=== PATIENT | female | born 1985 | race Caucasian/White ===

== ENCOUNTER 2024-08-04 14:50 | Observation (INO) | payer OTHER, SELFPAY ==
[2024-08-04] VITALS (8 sets, daily range): BP systolic 99–125; BP diastolic 61–86; BMI 16.5
--- NOTE | 2024-08-04 12:13 | ED.GENMED ---
History of Present Illness
General
Chief Complaint: Seizure
Source: patient
Exam Limitations: none
Time Seen by Provider: 08/04/24 11:59
Nursing documentation reviewed up to this point in time: agreed with
History of Present Illness
History of Present Illness:
Patient presents to ED after 'period of unresponsiveness' noted by her , while she was sitting on the couch last night lasting 'minutes'. She was told by her , she appeared to be confused when she did respond. Her eyes were open and
breathing the whole time. Denies previous history of similar symptoms. Shortly after the episode, patient reports 2 episodes of vomiting. Denies headache. Denies dizziness. Denies loss of sensation or weakness. Denies difficulty ambulation.
Denies difficulty with speech. Of note, patient was started on Wellbutrin for the first time 3 weeks ago for depression. In addition, patient is on Adderall chronically for ADHD. Denies family history of seizure disorder. Denies urinary or bowel
incontinence. Denies tongue biting.
Past History
Past History
ED Past Medical History: None; Negative Asthma, HTN, Hypercholesterolemia or NIDDM
ED Past Surgical History: (X 2)
Social History
Tobacco: Non-smoker
Alcohol: Occasional
Personal:
Living: with family
Employment: Employed
Review of Systems
Review of Systems
Allergies reviewed?: Yes
All Other Systems: ROS reviewed and negative except as documented in HPI and ROS
Constitutional: Reports no symptoms
Cardiac: Reports no symptoms
ABD/GI: Reports no symptoms
: Reports no symptoms; Denies incontinence
Musculoskeletal: Reports no symptoms
Skin: Reports no symptoms
Neurological: Reports no symptoms; Denies dizzy, headache, weakness or numbness
Phy Exam
Physical Exam
Physical Exam:
Physical Exam
General: no apparent distress, not acutely ill. afebrile
Head: nc/at. eomi
Neck: supple. no meningeal signs.
Heart: s1/s2 regular rate and rhythm
Lungs: no acute respiratory distress. clear bilaterally
Abdomen: normal bowel sounds. not tender.
Neuro: alert and oriented x 3. no focal neurological deficits. normal speech
Skin: no rash
Psychiatric: well kept. interactive and cooperative
Extremities: no edema. no calf tenderness.
Course
Orders/Labs/Results
Orders:
Orders
08/04/24 Breakfast
Regular
At Your Request: Full Participation
Does patient need a safe tray?: No
08/04/24 11:36
ECG [Electrocardiogram (*1)] Urgent
Reason for Study: Other
Other Reason for Exam: seizure
08/04/24 11:37
EKG- Treatment ONCE
08/04/24 13:46
EEG Routine Routine
Reason for Exam: ? CPS
Neurology Consult:: DR. CHENG
MR Brain W/o & With Contrast Routine
Comment:
Reason For Exam: seizure
Recent pill cam endoscopy?: No
08/04/24 13:50
Test Result ONCE
08/04/24 13:53
Complete Blood Count/No Diff Urgent
Comprehensive Metabolic Panel Urgent
HCG, Serum Qualitative Screen Urgent
Magnesium Urgent
TSH Reflex To Free T4 Urgent
Comment: ADD ON
08/04/24 13:59
Add On- LAB Urgent
Tests Added?: TSH reflex free T4
08/04/24 14:35
Admit/Transfer Patient As Directed
Co-Sign Provider:
Level of Care: Observation services
Assign to:: Telemetry
Physician / Group: [email or web address]
Diagnosis: Likely new onset Sz
Reason for Telemetry: Other
Other Reason for Telemetry: Likely new onset Sz
Date to Stop Telemetry: 08/06/24
Time to Stop Telemetry: 11:00
08/04/24 14:37
Code Status As Directed
Resuscitation Status: Full Code
08/04/24 16:28
Acetaminophen [Tylenol] 650 mg PO Q4HPRN PRN
Bisacodyl [Dulcolax] 10 mg RECTAL [id number] PRN
Docusate W/Senna [Senokot-S] 1 tablet PO BIDPRN PRN
Polyethylene Glycol Powder [Miralax] 17 grams PO DAILYPRN PRN
08/04/24 16:28
Activity As Directed
Activity Level: With Assistance
Pneumatic Compression Sleeves As Directed
Type: Knee high
Vital Signs As Directed
Frequency: Per unit guidelines
DX Deep Vein Thrombosis Video Routine
08/05/24 06:00
Basic Metabolic Panel IN AM
Complete Blood Count/With Diff IN AM
08/06/24 11:00
DC Protocol for Telemetry ONCE
Abnormal Lab Results
08/04/24
13:53
WBC 4.4 L 10^3/uL
(4.8-10.8)
MCH 31.2 H pg
(27.0-31.0)
MPV 10.6 H fL
(7.4-10.4)
08/04/24 13:53
08/04/24 13:53
Vital Signs
Initial and Last Documented VS:
Initial Vital Signs
Temp Pulse Resp BP Pulse Ox
97.9 F 106 20 125/86 99
08/04/24 11:31 08/04/24 11:31 08/04/24 11:31 08/04/24 11:31 08/04/24 11:31
Last Documented Vital Signs
Temp Pulse Resp BP Pulse Ox
97.6 F 77 16 100/62 98
08/05/24 03:44 08/05/24 03:44 08/05/24 03:44 08/05/24 03:44 08/05/24 03:44
MDM/Problems Addressed
MDM/Problems Addressed:
Patient evaluated in ED by neurology, . Recommends further workup, including MRI brain w/wo contrast and EEG
*Critical Care Note
Total Time (30-74mins, 75-104mins- exclusive of procedures): Not Applicable
ED Attending Note
-
Portions of this chart may have been created with voice recognition software.� Occasional wrong word or��sound alike� substitutions may have occurred due to the inherent limitations of voice recognition software.
Discharge Plan
Departure
Patient Disposition: Admit
Date of Disposition: 08/04/24
Time of Disposition: 14:19
Presentation/result/management discussed w/ accepting MD/DO: Hospitalist
Discharge Problem:
Seizure
Interventions
Interventions:
*Risk Screen - Suicide Last Done: 08/04/24 16:31
*General Assessment Last Done: 08/04/24 11:31
*Neglect/Abuse Screening Last Done: 08/04/24 12:26
*ED- Fall Risk Assessment Last Done: 08/04/24 12:26
*ED COVID-19 Vaccine History Last Done: 08/04/24 16:31
*Nursing Disposition Last Done: 08/04/24 16:29
ED- Pulmonary Assessment Last Done: 08/04/24 12:31
ED- Neurological Assessment Last Done: 08/04/24 12:31
ED- Cardiac Assessment Last Done: 08/04/24 12:31
Discharge Date and Time
Discharge Date/Time: 08/04/24 16:32
--- NOTE | 2024-08-04 13:38 | CON.NEURO ---
Neuro Assessment/Plan
Assessment
First time seizure, probably right sided focus given left sided Damian's palsy.
With Wellbutrin having lowered the seizure threshold this would be a provoked seizure
Plan
admit obs
MRI brain with and w/o contrast
routine EEG
d/c Wellbutrin
ok to drive if studies are normal
Consultation
Order
Date of Consultation: 08/04/24
Requesting Provider: Aman Arvizu
Reason for Consult: seizure
Subjective/Objective
Subjective Data
Date of Service: August 04, 2024
38 year old right handed woman presents possible seizure. She remembers cleaning up after dinner last night, and then later in the evening her found her laying on couch unresponsive, then confused, and then gradually returned to normal. ~25
mins later vomited x2. no tongue bite
no head trauma/LOC, no STATISTICS INTERN infection, no fhx of seizures
started Wellbutrin 3 weeks ago
Objective Data
Vital Signs
Temp Pulse Resp BP Pulse Ox
36.6 C 96 19 125/86 100
08/04/24 11:31 08/04/24 12:32 08/04/24 12:32 08/04/24 11:31 08/04/24 12:32
Patient Allergies
No Known Allergies Allergy (Verified 08/04/24 11:31)
Physical Exam
-
AAOx3, speech clear, language intact
VFF, EOMI, face symmetric
subtle left sided weakness/pronator drift
mildly decreased sensation left UE/LE to pin, temp, and vibration
DTR 1+ symmetric
[2024-08-04 14:08] LABS: Hematocrit 41.2 % (37.0-47.0); Hemoglobin 14.3 g/dL (12.0-16.0); Mean Corp Hgb Conc. 34.7 g/dL (33.0-37.0); Mean Corpuscular Hgb 31.2 pg (27.0-31.0); Mean Corpuscular Volume 89.8 fL (81.0-99.0); Mean Platelet Volume 10.6 fL (7.4-10.4); Platelet Count 307 10^3/uL (130-400); Red Blood Cell Count 4.59 10^6/uL (4.20-5.40); Red Cell Dist. Width 12.5 % (11.5-14.5); White Blood Cell Count 4.4 10^3/uL (4.8-10.8)
[2024-08-04 14:23] LABS: HCG, Serum Qualitative Screen Negative
[2024-08-04 14:27] LABS: ALT (SGPT) 15 U/L (0-35); AST (SGOT) 20 U/L (14-36); Albumin 4.2 g/dl (3.5-5.0); Alkaline Phosphatase 54 U/L (38-126); Blood Urea Nitrogen 9 mg/dl (7-17); Calcium 9.5 mg/dl (8.4-10.2); Carbon Dioxide 27 mmol/L (22-30); Chloride 106 mmol/L (98-107); Glucose 76 mg/dl (70-99); Magnesium 2.3 mg/dl (1.6-2.3); Potassium 4.3 mmol/L (3.5-5.1); Sodium 139 mmol/L (135-145); Total Bilirubin 0.8 mg/dl (0.2-1.3); Total Protein 6.8 g/dl (6.3-8.2); eGFR > 60.00
--- NOTE | 2024-08-04 14:28 | HPS.HSE ---
Family Physician
-
Family Physician: Ry Marcano
Chief Complaint
-
possible Sz
History of Present Illness
HPI
38F Rt handed No sig PMHX, recently started on Wellbutrin 3 weeks ago
- seen at ER for s possible seizure.
- possible remembers cleaning up after dinner last night, and then later in the evening her found her laying on couch unresponsive, then confused, and then gradually returned to normal.
- 25 Mins later vomited x 2
- no tongue bite
- no head trauma/LOC, no PESTICIDE CHEMIST infection, no HX seizures
Medical History
Past Medical History
Past Medical History: Reports Psychiatric (depression)
Additional Past Medical History:
Migraine , Psoriasis
Past Surgical History: Reports (2)
Social History
Tobacco: Non-smoker
Alcohol: Occasional
Employment: Employed
Family History
Family History: Not pertinent
Allergies / Home Medications
Allergies reflects when Allergies were last updated in [facility].
Home Medications with original date entered in [facility]
Allergy/Medication List:
Allergies
Allergy/AdvReac Type Severity Reaction Status Date / Time
No Known Allergies Allergy Verified 08/04/24 11:31
If medication reconciliation has not been performed, why?: Medication List N/A
Review of Systems
-
Constitutional: Reports No Symptoms
EENT: Reports No Symptoms
Respiratory: Reports No Symptoms
Cardiac: Reports No Symptoms
Abdomen/GI: Reports No Symptoms
: Reports No Symptoms
Musculoskeletal: Reports No Symptoms
Skin: Reports No Symptoms
Neurological: Reports No Symptoms
Endocrine: Reports No Symptoms
Hematologic/Lymphatic: Reports No Symptoms
Psych: Reports No Symptoms
Physical Exam
Vital Signs
Vital Signs
Temp Pulse Resp BP Pulse Ox
97.9 F 88 19 114/69 99
08/04/24 11:31 08/04/24 13:45 08/04/24 12:32 08/04/24 13:32 08/04/24 13:45
Physical Exam
General: Well Developed, Well Nourished and No Apparent Distress
HEENT: NormoCephalic, Moist mucous membranes and Atraumatic
Respiratory: Clear
Cardiac: S1/S2 and Regular Rhythm; No Murmur or Rub
GI: Soft, Non Tender, Non Distended and Normal Bowel Sounds; No Organomegaly
Rectal: Deferred by Provider
Musculoskeletal: No Clubbing, No Cyanosis and No Edema
Skin: No Rash
Neuro: Nonfocal/grossly intact
Laboratory Results
-
08/04/24 13:53
08/04/24 13:53
Laboratory Results
Total Bilirubin 0.8 mg/dl (0.2-1.3) 08/04/24 13:53
AST 20 U/L (14-36) 08/04/24 13:53
ALT 15 U/L (0-35) 08/04/24 13:53
Alkaline Phosphatase 54 U/L (38-126) 08/04/24 13:53
Data Reviewed
-
Lab Data: Labs Reviewed by me
Impression/Plan
-
Vital Signs
Temp Pulse Resp BP Pulse Ox
97.9 F 88 19 114/69 99
08/04/24 11:31 08/04/24 13:45 08/04/24 12:32 08/04/24 13:32 08/04/24 13:45
Abnormal Lab
08/04/24
13:53
WBC 4.4 L
MCH 31.2 H
MPV 10.6 H
ASSESSMENT & PLAN
New onset Sz suspected by Neurologist evaluation suspect provoked
- Wellbutrin having lowered the seizure threshold this would be a provoked seizure
- probably right sided focus given left sided Damian's palsy.
- MRI brain with and w/o contrast
- routine EEG
- d/c Wellbutrin
- OK to drive if studies are normal per Neuro
Pre existing condition : Pending Rx reconciliation
Depression
Psoriasis
Migraine
DVT Px: SCD
Full code
Obs TLM
[2024-08-04 15:50] LABS: TSH Reflex To Free T4 1.34 uIU/ml (0.47-4.68)
--- NOTE | 2024-08-04 16:25 | EEG.RPT ---
Electroencephalogram Report
Recording
Date of EE08/04/24
Type of EEG: Routine
Length of EEG recordin minutes
Done with Video Recording: Yes
Patient Status: Inpatient
Recording Conditions: Awake and Drowsy
Hyperventilation Performed: No
Photic Stimulation Performed: Yes
Report
LESS THAN 1 HOUR EEG REPORT
LESS THAN 1 HOUR EEG INTERPRETATION:
Unremarkable EEG for age
CLINICAL CORRELATION:
A normal EEG does not rule out a diagnosis of epilepsy. If clinical suspicion for seizure persists, a prolonged recording may be warranted.
Clinical correlation is advised.
METHODS:
A 21 channel digitized electroencephalogram (EEG) was performed using the 10/20 international system of electrode placement and one-lead of ECG recorded. Video was recorded. Persyst quantitative EEG analysis was performed.
ELECTROENCEPHALOGRAPHER IMPRESSION(S):
Quality of study
Good
Background
There was an unremarkable anterior-posterior voltage gradient of alpha frequency.
With eye opening the background activity changed to a low voltage mixture of frequencies.
There were no significant asymmetries of background activity noted.
Sleep
Drowsiness present
Hyperventilation
Produced symmetric amplitude increase and mild slowing appropriate to age
Photic Stimulation
Produced driving symmetrically in most flash frequencies
ECG
Normal sinus rhythm
--- NOTE | 2024-08-04 17:08 | PTCARENOTE ---
Received pt in room 410-2. Pt ambulatory to bed with no assistance. VSS. Pt reports no pain. SCDs on. Oriented to room, no questions/complaints at this time.
[2024-08-04] MEDS: ADDERALL PO (20:16)
[2024-08-05 03:44] VITALS: BP 100/62
[2024-08-05] MEDS: SYNTHROID 50 MCG PO (05:28)
[2024-08-05 07:25] VITALS: BP 90/57
[2024-08-05 07:44] LABS: % Basophils 3.5 % (0-2); % Immature Granulocytes 0.5 % (0-0.5); % Monocytes 12.9 % (1.7-9.3); % Neutrophils 54.1 % (42.2-75.2); Absolute Basophils 0.2 10^3/uL (0-0.2); Absolute Eosinophils 0.3 10^3/uL (0-0.7); Absolute Monocytes 0.6 10^3/uL (0.1-0.6); Absolute Neutrophils 2.4 10^3/uL (1.4-6.5); Hematocrit 41.1 % (37.0-47.0); Hemoglobin 13.8 g/dL (12.0-16.0); Mean Corp Hgb Conc. 33.6 g/dL (33.0-37.0); Mean Corpuscular Hgb 30.5 pg (27.0-31.0); Mean Corpuscular Volume 90.7 fL (81.0-99.0); Mean Platelet Volume 10.9 fL (7.4-10.4); Nucleated Red Blood Cells % 0 %; Platelet Count 302 10^3/uL (130-400); Red Blood Cell Count 4.53 10^6/uL (4.20-5.40); Red Cell Dist. Width 12.7 % (11.5-14.5); White Blood Cell Count 4.3 10^3/uL (4.8-10.8)
[2024-08-05] MEDS: ADDERALL 10 MG PO (08:07)
[2024-08-05 08:12] LABS: Blood Urea Nitrogen 16 mg/dl (7-17); Carbon Dioxide 23 mmol/L (22-30); Chloride 109 mmol/L (98-107); Estimated Creatinine Clearance 60 ml/min; Glucose 82 mg/dl (70-99); Potassium 4.8 mmol/L (3.5-5.1); Sodium 140 mmol/L (135-145); eGFR > 60.00
--- NOTE | 2024-08-05 11:08 | W.PN.HOSP.TC ---
Today's Communication/Plan
-
d/c
Assessment / Plan
Assessment / Plan
Gen: NAD, AAOx3.
Eyes: EOMI, PERRLA, no scleral icterus.
Neck: supple.
CV: RRR, +S1/S2, no m/r/g.
Resp: CTAB, no rales, wheezes, or rhonchi.
Abd: +BS, soft, NT, ND
Skin: No rashes.
Neuro: CN 2-12 intact, non-focal.
Psych: Normal mood and affect.
New onset, provoked seizure due to initiation of Wellbutrin
-Discussed with Dr. Chiu
-EEG and MRI brain unremarkable
-Patient will not go back on Wellbutrin
-Patient is medically cleared for discharge as per neurologist/Dr. Chiu. She will be allowed to drive after discharge as per discussion with neurologist/Dr. Chiu over [employer] at 1051 on 08/05/24.
Other problems:
Depression
Psoriasis
Migraine
Medically cleared for d/c.
Anticipated Discharge: Today
Subjective/Interval History
-
Date of Service: August 05, 2024
No new complaints.
Objective Data
-
Labs:
Laboratory Results
08/05/24
06:47
WBC 4.3 L
Hgb 13.8
Hct 41.1
Plt Count 302
Sodium 140
Potassium 4.8
Chloride 109 H
Carbon Dioxide 23
BUN 16
Creatinine 0.8
Glucose 82
Calcium 9.0
Vital Signs:
Vital Signs
Temp Pulse Resp BP Pulse Ox
98.3 F 83 16 90/57 98
08/05/24 07:25 08/05/24 07:25 08/05/24 07:25 08/05/24 07:25 08/05/24 09:33
I&O
08/04/24 08/05/24 08/06/24
06:59 06:59 06:59
Intake Total 600 / 600
Balance 600 / 600
[2024-08-05 11:15] VITALS: BP 102/69
--- NOTE | 2024-08-05 12:50 | W.DCSUMMARY ---
Discharge Summary
Discharge Data
Date of Admission: 08/04/24
Date of Discharge: 08/05/24
-
Pending Results: No
Hospital Course
Primary diagnoses:
New onset, provoked seizure due to initiation of Wellbutrin
Secondary diagnoses:
Depression
Psoriasis
Migraine
Consultants:
Neurology
Imaging:
MRI brain: No acute intracranial abnormality noted.
EEG: Unremarkable EEG for age
Hospital course: 38-year-old female who presented to the ER with a chief complaint of 'possible seizure' as outlined in H&P done yesterday. The patient had recently been started on Wellbutrin which was held. MRI of the brain and EEG unremarkable
as above. The patient was seen in consultation by neurology and cleared for discharge. Obviously she will not be going back on her Wellbutrin. She has no driving restrictions at this time as per neurology.
Discharge Plan
-
Patient Disposition: Home (Routine Discharge)
Discharge Diagnosis/Procedures: seizure due to Wellbutrin use
Condition: Good
Diet: No restrictions
Activity: No restrictions
Driving Restrictions: As prior to admission
Bathing Restrictions: None
Referrals:
Ry Marcano, DO [Family Provider] - in less than 1 week
Prescriptions:
Continued
dextroamphetamine-amphetamine [Adderall] 10 mg Tablet
10 mg PO BID
sumatriptan succinate [Imitrex] 50 mg Tablet
0 mg PO .COMPLEX
Rx Instructions:
take 1 tab at onset of headache; if no relief may repeat 1 tab after at least 2 hrs; max = 4 tabs/24 hr
levothyroxine [Synthroid] 50 mcg Tablet
50 mcg PO DAILY
ondansetron 4 mg Tablet,Disintegrating
4 mg PO Q6HPRN PRN (Reason: nausea)
Ubrelvy 50 mg Tablet
50 mg PO DAILYPRN PRN (Reason: mirgraines)
Skyrizi 150 mg/mL Pen Injector
0 mg SC [id number]
Discontinued
bupropion HCl [Wellbutrin SR] 150 mg Tablet Sustained-Release 12 Hr
150 mg PO BID
Discharge Orders:
Discharge Patient (As Directed); Ordered 08/05/24
Ordered By: Basilio Norris
Discharge Date and Time
Discharge Date/Time: 08/05/24 12:30
Print Language: [place]
--- NOTE | 2024-08-05 14:04 | W.PN.NEURO.1 ---
Today's Communication / Plan
-
d/c home, no rx
ok to drive, DMV form DL-13 and DL-121 sent
Neuro Assessment/Plan
Assessment
First time seizure, probably right sided focus given left sided Damian's palsy.
With Wellbutrin having lowered the seizure threshold this would be a provoked seizure
MRI brain with and w/o contrast was normal
routine EEG was normal
Plan
d/c Wellbutrin
ok to drive
Subjective/Objective
Subjective Data
Date of Service: August 05, 2024
Feels well, no further seizures
Objective Data
Vital Signs
Temp Pulse Resp BP Pulse Ox
36.8 C 86 16 102/69 98
08/05/24 11:15 08/05/24 11:15 08/05/24 11:15 08/05/24 11:15 08/05/24 11:15
Lab Results
08/05/24 06:47
08/05/24 06:47
Sodium 140 mmol/L (135-145) 08/05/24 06:47
Potassium 4.8 mmol/L (3.5-5.1) 08/05/24 06:47
BUN 16 mg/dl (7-17) 08/05/24 06:47
Glucose 82 mg/dl (70-99) 08/05/24 06:47
Calcium 9.0 mg/dl (8.4-10.2) 08/05/24 06:47
Patient Allergies
No Known Allergies Allergy (Verified 08/04/24 11:31)
Physical Exam
-
AAOx3, speech clear, language intact
VFF, EOMI, face symmetric
full strength, subtle left sided weakness yesterday is resolved
sensory normal, deficits yesterday resolved
DTR 1+ symmetric
== END 2024-08-05 12:30 | disposition home or self-care (01) ==
LOC: 4 EAST ACU 14:50
PROVIDERS: ADMITTING PHYSICIAN Internal Medicine; ATTENDING PHYSICIAN Internal Medicine; EMERGENCY PHYSICIAN Emergency Medicine; FAMILY PHYSICIAN Family Medicine; OTHER PHYSICIAN Psychiatry & Neurology Clinical Neurophysiology
DX: R56.9 Unspecified convulsions (principal); T43.295A Adverse effect of other antidepressants, initial encounter; Y92.009 Unspecified place in unspecified non-institutional (private) residence as the place of occurrence of the external cause; R11.10 Vomiting, unspecified; F32.A Depression, unspecified; F90.9 Attention-deficit hyperactivity disorder, unspecified type; L40.9 Psoriasis, unspecified; G43.909 Migraine, unspecified, not intractable, without status migrainosus; I11.9 Hypertensive heart disease without heart failure; R94.31 Abnormal electrocardiogram [ECG] [EKG]; G83.84 Todd's paralysis (postepileptic)
CPT/HCPCS: 70553; 80048; 80053; 83735; 84443; 84703; 85025; 85027; 93005; 95816; 99285; A9575